=== PATIENT | female | born 1975 | race Caucasian/White ===

== ENCOUNTER 2018-06-21 05:33 | Observation (INO) | payer BC ==
[2018-06-20 10:31] LABS: BASOPHILS % 0.4 % (0.0-1.0); EOSINOPHILS # (AUTO) 0.1 (0.0-0.4); EOSINOPHILS % 2.1 % (0.0-6.0); HEMATOCRIT 37.6 % (34.2-44.1); HEMOGLOBIN 12.4 g/dL (12.0-16.0); LYMPHOCYTES # (AUTO) 2.1 (1.0-3.2); LYMPHOCYTES % 31.6 % (18.0-39.1); MONOCYTES # (AUTO) 0.9 (0.2-0.8); MONOCYTES % 13.4 % (4.4-11.3); NEUTROPHILS # (AUTO) 3.5 (2.1-6.9); NEUTROPHILS % 52.2 % (38.7-80.0); PLATELET COUNT 238 x10e3/uL (140-360); RED BLOOD COUNT 4.13 x10e6/uL (3.6-5.1); RED CELL DISTRIBUTION WIDTH 12.4 % (11.7-14.4)
[2018-06-20 10:54] LABS: ANION GAP 10.7 mmol/L (8-16); BLOOD UREA NITROGEN 15 mg/dL (7-26); BUN/CREATININE RATIO 22 (6-25); CARBON DIOXIDE 23 mmol/L (22-29); CHLORIDE 109 mmol/L (98-107); CREATININE, SERUM 0.69 mg/dL (0.57-1.11); EST GLOMERULAR FILTRATION RATE > 60 ML/MIN (60-); GLUCOSE 94 mg/dL (74-118); POTASSIUM 3.7 mmol/L (3.5-5.1); SODIUM 139 mmol/L (136-145)
[~2018-06-21] VITALS: Ht 152.4 cm; Wt 61.3 kg
[~2018-06-21 05:33] MED LIST: DILANTIN50 MG; FERROUS SULFAT325 MG PO; NORCO 10-325 T1 EACH PO; PHENYTOIN SODI100 MG PO; SIMVASTATIN20 MG PO; VITAMIN C500 M1 PO; VITAMIN E400 UNIT PO
--- OUTSIDE RECORDS SUMMARY | 2018-06-21 05:39 | XMS REPORT | Clinical Summary ---
Author Author [facility] Address Unknown Phone Unavailable Care Team Providers Care Policewoman Name Role Phone Caleb Gomez MD PCP Unavailable Allergies Comments Active Allergy Reactions Severity Noted Date Skin became so red, like sunburn, nausea Gadoterate Meglumine Other (See High 07/30/2017 Comments) Tomatoes- vomiting Other Food Other (See High 11/12/2017 Comments) Medications End Date Status Medication Sig Dispensed Refills Start Date Active HYDROcodone-acetaminophen Take 1 tablet 0 (NORCO) 10-325 mg per by mouth tablet every 6 (six) hours as needed for moderate pain. Active phenytoin sodium extended Take 100 mg 0 (DILANTIN ORAL) by mouth 3 (three) times a day. Active ascorbic acid, vitamin C, Take 500 mg 0 (ascorbic acid with nikolay by mouth hips) 500 MG tablet daily. Active vitamin E 200 UNIT Take 200 0 capsule Units by mouth daily. 12/02/2017 minocycline (MINOCIN) 100 Take 1 14 capsule 0 MG capsule capsule (100 8 mg total) by mouth 2 (two) times a day for 7 days. 01/02/2018 celecoxib (CeleBREX) 50 Take 1 60 capsule 0 MG capsule capsule (50 8 mg total) by mouth 2 (two) times a day for 30 days. 01/02/2018 gabapentin (NEURONTIN) Take 1 90 capsule 0 100 mg capsule capsule (100 8 mg total) by mouth 3 (three) times a day for 30 days. 12/14/2017 sulfamethoxazole-trimetho Take 1 tablet 14 tablet 0 prim (BACTRIM DS) 800-160 by mouth 2 8 mg per tablet (two) times a day for 7 days. 12/17/2017 mupirocin (BACTROBAN) 2 % Apply 30 g 0 ointment topically 2 8 (two) times a day for 10 days. 12/27/2017 clindamycin (CLEOCIN HCL) Take 1 40 capsule 0 150 MG capsule capsule (150 8 mg total) by mouth 4 (four) times a day for 10 days. Active Problems Problem Noted Date Neuralgia of left inguinal region 12/03/2017 Neuralgia of right inguinal region 12/03/2017 Encounters Care Team Description Date Type Specialty Lavinia Hua, AUSTEN 11/25/2017 Anesthesia General Surgery Event Tony Hui MD DENERVATION, BILATERAL GROIN W/ MUSCLE REPAIR 11/25/2017 Surgery Plastic Surgery Tony Hui MD Ilioinguinal neuralgia, right; Ilioinguinal neuralgia, left 11/25/2017 Hospital Plastic Surgery Encounter Tony Hui MD Ilioinguinal neuralgia, right (Primary Dx); Preop examination 11/12/2017 Pre-Admit Pre-Admission Testing Testing Appointment Tony Hui MD Inguinal neuralgia 08/05/2017 Hospital Radiology Encounter after 06/20/2017 Family History Medical History Relation Name Comments No Known Problems Father Fibromyalgia Mother Hypertension Mother Relation Name Status Comments Brother Alive myotonia congenita Father Alive Mother Alive myotonia congenita Social History Date Tobacco Use Types Packs/Day Years Used Never Smoker Smokeless Tobacco: Never Used Alcohol Use Drinks/Week oz/Week Comments Yes occasional Sex Assigned at Date Recorded Not on file Industry Job Start Date Occupation Not on file Not on file Not on file Travel End Travel History Travel Start No recent travel history available. Last Filed Vital Signs Time Taken Vital Sign Reading 11/25/2017 6:49 PM CDT Blood Pressure 106/64 11/25/2017 6:49 PM CDT Pulse 81 11/25/2017 6:49 PM CDT Temperature 37.1 C (98.7 F) 11/25/2017 6:49 PM CDT Respiratory Rate 14 11/25/2017 6:49 PM CDT Oxygen Saturation 98% - Inhaled Oxygen - Concentration 11/25/2017 12:43 PM CDT Weight 61.3 kg (135 lb 4 oz) 11/25/2017 12:43 PM CDT Height 154.9 cm (5' 1") 11/25/2017 12:43 PM CDT Body Mass Index 25.56 Plan of Treatment Health Maintenance Due Date Last Done Comments CERVICAL CANCER SCREENING 1997 INFLUENZA VACCINE 09/22/2018 Implants Device Identifier Shelf Expiration Date Model / Serial / Lot Implanted Type Area Manufactur er [id number] / / [facility] Micr Mricompatable Surgical N/A: N/A COOK [facility] Design Ti Bl - [id number] Implants; VASCULAR Implanted: Qty: 5 on 11/25/2017 by [employer]; [employer] Tony Hui MD Extenders; Surgical Wires Procedures Comments Procedure Name Priority Date/Time Associated Diagnosis SURGICAL PATHOLOGY Routine 11/26/2017 REQUEST 8:39 AM CDT NC AN ELECTIVE Routine 11/25/2017 ENDOTRACHEAL AIRWAY 4:02 PM CDT Procedure Note - Erik Mtz CRNA - 11/25/2017 4:02 PM CDT Airway Date/Time: 11/25/2017 3:34 PM Performed by: ERIK MTZ Authorized by: BIMAL KIRBY Location: OR Urgency: Elective Difficult Airway: No Anesthesio logist: BIMAL KIRBY Resident/C RNA/AA: ERIK MTZ Performed by: resident/C RNA/AA Preoxygena que with 100% O2: Yes C-spine Precaution s Maintained Throughout : Yes Mask Ventilatio n: Easy mask Final Airway Type: Endotrache al airway Final Endotrache al Airway: ETT and reinforced tube Cuffed: Yes Technique Used: Direct laryngosco py Devices/Me thods Used in Placement: Intubatin g stylet Insertion Site: Oral Blade Type: Melanie Laryngosco pe Blade/Vide olaryngosc ope Blade Size: 3 ETT Size (mm): 6.0 Cuff at minimum occlusion pressure: Yes Measured from: Lips ETT to Lips (cm): 22 Placement Verified by: CO2 detection, direct visualizat ion and equal breath sounds Laryngosco pic view: Grade IIa - partial view of glottis Rapid Sequence Induction (RSI): No Modified RSI: No Number of Attempts at Approach: 1 DLx1, Mac 3 blade, atraumatic ; 6.0 reinforced ETT visualized through the cuffs; bilateral breath sounds; EtCO2 present GRAFT, NERVE, TO LOWER 11/25/2017 Ilioinguinal neuralgia, EXTREMITY 1:20 PM CDT right Ilioinguinal neuralgia, left Case Notes TF, EST 2 HRS, BRACHIIAL PLEXUS SET, AXOGEN NERVE GRAFT X 4, 2MM NERVE CONNECTOR X 4 Special Needs TF, EST 2 HRS, BRACHIIAL PLEXUS SET, AXOGEN NERVE GRAFT X 4, 2MM NERVE CONNECTOR X 4 ESTIMATED GFR Routine 11/12/2017 11:47 AM CDT CBC HEMOGRAM Routine 11/12/2017 Preop examination 11:47 AM CDT COMPREHENSIVE METABOLIC Routine 11/12/2017 Preop examination PANEL 11:47 AM CDT MRI PELVIS WO CONTRAST Routine 08/05/2017 Inguinal neuralgia 7:28 PM CDT after 06/20/2017 Results * Surgical pathology request (11/26/2017 8:39 AM CDT) [facility] DEPARTMENT OF PATHOLOGY AND GENOMIC MEDICINE Surgical pathology report See link below for PDF Lab [facility] DEPARTMENT OF Report PATHOLOGY AND GENOMIC MEDICINE Result status This is Final Report for [facility] DEPARTMENT OF [id number] PATHOLOGY AND GENOMIC MEDICINE Performing Organization Address City/[facility] Phone Number [facility] DEPARTMENT OF [address] [place] [address] PATHOLOGY AND GENOMIC MEDICINE * Estimated GFR (11/12/2017 11:47 AM CDT) Estimated GFR >=90 mL/min/1.[address] [facility] DEPARTMENT OF Comment: PATHOLOGY AND CatergoryUnitsInte GENOMIC MEDICINE rpretation G1 >=90 Normal or high G2 60-89Mildly decreased [id number] Mildly to moderately decreased [id number] Moderately to severely decreased G4 15-29Severely decreased G5 <15Kidney failure The eGFR was calculated using the Chronic Kidney Disease Epidemiology Collaboration (CKD-EPI) equation. Interpretation is based on recommendations of the National Kidney Foundation-Kidney Disease Outcomes Quality Initiative (NKF-KDOQI) published in 2014. Specimen Plasma specimen Performing Organization Address City/[facility]/Zipcode Phone Number [facility] DEPARTMENT OF [address] [place] [address] PATHOLOGY AND GENOMIC MEDICINE * CBC hemogram (11/12/2017 11:47 AM CDT) WBC 12.58 (H) 4.50 - 11.00 k/uL [facility] DEPARTMENT OF PATHOLOGY AND GENOMIC MEDICINE RBC 4.60 4.20 - 5.50 m/uL [facility] DEPARTMENT OF PATHOLOGY AND GENOMIC MEDICINE HGB 13.6 12.0 - 16.0 g/dL [facility] DEPARTMENT OF PATHOLOGY AND GENOMIC MEDICINE HCT 41.4 37.0 - 47.0 % [facility] DEPARTMENT OF PATHOLOGY AND GENOMIC MEDICINE MCV 90.0 82.0 - 100.[address] [facility] DEPARTMENT OF PATHOLOGY AND GENOMIC MEDICINE MCH 29.6 27.0 - 34.[address] [facility] DEPARTMENT OF PATHOLOGY AND GENOMIC MEDICINE MCHC 32.9 31.0 - 37.0 g/dL [facility] DEPARTMENT OF PATHOLOGY AND GENOMIC MEDICINE RDW - SD 42.5 37.0 - 55.[address] [facility] DEPARTMENT OF PATHOLOGY AND GENOMIC MEDICINE MPV 9.0 8.8 - 13.[address] [facility] DEPARTMENT OF PATHOLOGY AND GENOMIC MEDICINE Platelet count 266 150 - 400 k/uL [facility] DEPARTMENT OF PATHOLOGY AND GENOMIC MEDICINE Nucleated RBC 0.00 /[address] [facility] DEPARTMENT OF PATHOLOGY AND GENOMIC MEDICINE Specimen Blood Performing Organization Address City/[facility] Phone Number [address] [address] PATHOLOGY AND GENOMIC MEDICINE * Comprehensive metabolic panel (11/12/2017 11:47 AM CDT) Sodium 138 135 - 148 mEq/L [facility] DEPARTMENT OF PATHOLOGY AND GENOMIC MEDICINE Potassium 4.6 3.5 - 5.0 mEq/L [facility] DEPARTMENT OF PATHOLOGY AND GENOMIC MEDICINE Chloride 98 98 - 112 mEq/L [facility] DEPARTMENT OF PATHOLOGY AND GENOMIC MEDICINE CO2 27 24 - 31 mEq/L [facility] DEPARTMENT OF PATHOLOGY AND GENOMIC MEDICINE Anion gap 13@ANIO 7 - 15 mEq/L [facility] DEPARTMENT OF PATHOLOGY AND GENOMIC MEDICINE BUN 11 6 - 20 mg/dL [facility] DEPARTMENT OF PATHOLOGY AND GENOMIC MEDICINE Creatinine 0.58 0.50 - 0.90 mg/dL [facility] DEPARTMENT OF PATHOLOGY AND GENOMIC MEDICINE Glucose 79 65 - 99 mg/dL [facility] DEPARTMENT OF PATHOLOGY AND GENOMIC MEDICINE Calcium 9.6 8.3 - 10.2 mg/dL [facility] DEPARTMENT OF PATHOLOGY AND GENOMIC MEDICINE Protein 8.1 6.3 - 8.3 g/dL [facility] DEPARTMENT OF Comment: PATHOLOGY AND [place] GENOMIC MEDICINE 4.6-7.0 g/dL 1 week 4.4-7.6 g/dL 7 months-1year 5.1-7.3 g/dL 1-2 years5.6-7 .5 g/dL >3 years6.0-8 .0 g/dL 18-150 6.3-8.3 g/dL Albumin 4.0 3.5 - 5.0 g/dL [facility] DEPARTMENT OF PATHOLOGY AND GENOMIC MEDICINE A/G ratio 1.0 0.7 - 3.[address] [facility] DEPARTMENT OF PATHOLOGY AND GENOMIC MEDICINE Alkaline phosphatase 75 35 - 104 U/L [facility] DEPARTMENT OF PATHOLOGY AND GENOMIC MEDICINE AST 26 10 - 35 U/L [facility] DEPARTMENT OF PATHOLOGY AND GENOMIC MEDICINE ALT 28 5 - 50 U/L [facility] DEPARTMENT OF PATHOLOGY AND GENOMIC MEDICINE Total bilirubin 0.4 0.0 - 1.2 mg/dL [facility] DEPARTMENT OF PATHOLOGY AND GENOMIC MEDICINE Specimen Plasma specimen Performing Organization Address City/State/Zipcode Phone Number [facility] DEPARTMENT OF [address] [place] [address] PATHOLOGY AND GENOMIC MEDICINE * MRI Pelvis Wo Contrast (08/05/2017 7:28 PM CDT) Narrative Performed At EXAMINATION:MRI PELVIS WO CONTRAST [facility] CLINICAL HISTORY:M79.2 Neuralgia and neuritisunspecified, inguinal groin painbilateral TECHNIQUE: Multiplanar multisequence MR images of the pelvis were obtained without contrast. The lack of intravenous contrast reduces the sensitivity of the examination. COMPARISON:None. Osseous structures: The bony pelvis appears intact no abnormal signal is identified involving the femur on either side. There are no changes to suggest AVN , stress injury or other bony lesion within the pelvis. Sacroiliac joints appear unremarkable. Hip joints appear relatively preserved. Musculature: The gluteal, adductor muscles and hamstrings at their atrial attachments appear intact to limits visualized by this technique. The iliopsoas muscles on both sides appears symmetric. The distal insertions appear grossly unremarkable. The visualized sacral nerves and course of the sciatic nerves appear unremarkable. No inguinal lymph nodes or masses are identified on either side. Miscellaneous findings: The left ovary is not visualized. The uterus is not visualized. There is a lobular cystic lesion in the right adnexa consistent with ovarian cyst measuring 4.6 x 3.9 x 3.9 cm this is bilobed and follow-up to ensure resolution is recommended. There is no free fluid in the cul-de-sac. No adenopathy or mass in the pelvis is identified. IMPRESSION: 1. Postop hysterectomy and possibly right O fracture of the right ovary is not visualized. 2. Multilocular cyst right adnexa follow-up to ensure resolution is suggested this measures up to approximately 4.6 cm in maximum dimension. [id number] Procedure Note Interface, Radiology Results Incoming - 08/06/2017 10:57 AM CDT EXAMINATION: MRI PELVIS WO CONTRAST CLINICAL HISTORY: M79.2 Neuralgia and neuritis unspecified, inguinal groin pain bilateral TECHNIQUE: Multiplanar multisequence MR images of the pelvis were obtained without contrast. The lack of intravenous contrast reduces the sensitivity of the examination. COMPARISON: None. Osseous structures: The bony pelvis appears intact no abnormal signal is identified involving the femur on either side. There are no changes to suggest AVN , stress injury or other bony lesion within the pelvis. Sacroiliac joints appear unremarkable. Hip joints appear relatively preserved. Musculature: The gluteal, adductor muscles and hamstrings at their atrial attachments appear intact to limits visualized by this technique. The iliopsoas muscles on both sides appears symmetric. The distal insertions appear grossly unremarkable. The visualized sacral nerves and course of the sciatic nerves appear unremarkable. No inguinal lymph nodes or masses are identified on either side. Miscellaneous findings: The left ovary is not visualized. The uterus is not visualized. There is a lobular cystic lesion in the right adnexa consistent with ovarian cyst measuring 4.6 x 3.9 x 3.9 cm this is bilobed and follow-up to ensure resolution is recommended. There is no free fluid in the cul-de-sac. No adenopathy or mass in the pelvis is identified. IMPRESSION: 1. Postop hysterectomy and possibly right O fracture of the right ovary is not visualized. 2. Multilocular cyst right adnexa follow-up to ensure resolution is suggested this measures up to approximately 4.6 cm in maximum dimension. [id number] Performing Organization Address City/State/Zipcode Phone Number [facility] [address] [place] [address] after 06/20/2017 Insurance Payer Benefit Subscriber ID Type Phone Address Plan / Group BCBS BCBS xxxxxxxxxxxx PPO CHOICE PPO/MICHELL MEZA PPO [phone] [id number] (Home) [place] [id number] Kayla Romero Reconstruc Self 1975 [phone] [address] (Home) [place] [address] Surgery Advance Directives Patient has advance care planning documents on file. For more information, rosita e contact: Mario Brasher [address] [place] [address]
--- OUTSIDE RECORDS SUMMARY | 2018-06-21 05:39 | XMS REPORT ---
Author Author [facility] Address Unknown Phone Unavailable Care Team Providers Care Clinical Law Professor Name Role Phone Unavailable Unavailable Payers Payer Name Policy Type Policy Number Effective Date Expiration Date Problems This patient has no known problems. Allergies, Adverse Reactions, Alerts Allergy Name Allergy Type Status Severity Reaction(s) Onset Date Inactive Date Treating Clinician Comments No Known Allergies DA Active U 2015-12-23 00:00:00 Medications This patient has no known medications.
[2018-06-21] MEDS ORDERED: BUPIVACAINE 0.25%/EPI 30ML SDV INJ ONE (07:05)
[2018-06-21] MEDS ORDERED: IBUPROFEN 250 ML IV ONE (08:08)
[2018-06-21] MEDS ORDERED: ACETAMINOPHEN 1000 MG/100 ML 100 ML IV ONE (08:08)
[2018-06-21] MEDS: LACTATED RINGER'S 1,000 ML IV SCH ×2 (09:36→18:07)
[2018-06-21] MEDS ORDERED: DIPHENHYDRAMINE HCL 25 MG CAP PO PRN (09:45)
[2018-06-21] MEDS ORDERED: HYDROMORPHONE 1MG/1ML INJ IV PRN (09:45)
[2018-06-21] MEDS ORDERED: HYDROCODONE/APAP 10MG-325MG TAB PO PRN (09:45)
[2018-06-21] MEDS ORDERED: ONDANSETRON HCL INJ 2MG/ML 2ML 2 MG/ML VIAL IV PRN (09:45)
[2018-06-21] MEDS ORDERED: DOCUSATE SODIUM 100 MG CAP PO PRN (09:45)
[2018-06-21] MEDS ORDERED: SIMETHICONE 80 MG CHEW PO PRN (09:45)
[2018-06-21] MEDS ORDERED: PROMETHAZINE HCL (IM) 25 MG/ML VIAL IV PRN (09:45)
[2018-06-21] MEDS ORDERED: BISACODYL 10 MG SUPP PR PRN (09:45)
[2018-06-21] MEDS ORDERED: HYDROMORPHONE 2MG/ML 2 MG/ML ML ONE (09:50)
--- OUTSIDE RECORDS SUMMARY | 2018-06-21 09:55 | XMS REPORT | Clinical Summary ---
Author Author [facility] [facility] [employer] Address Unknown Phone Unavailable Care Team Providers Care Motor Vehicle Dispatcher Name Role Phone Caleb Gomez MD PCP [...] / Lot Implanted Type Area Manufactur er [id number] / / Clip [facility] Sprfn Micr Mricompatable Surgical N/A: N/A COOK [facility] Design Ti Bl - [id number] Implants; VASCULAR Implanted: Qty: 5 on 11/25/2017 by [employer]; [employer] Tony Hui MD Extenders; Surgical Wires Procedures Comments Procedure Name Priority Date/Time Associated Diagnosis SURGICAL PATHOLOGY Routine 11/26/2017 REQUEST 8:39 AM CDT [place] AN ELECTIVE Routine 11/25/2017 ENDOTRACHEAL AIRWAY 4:02 [...] Surgical pathology request (11/26/2017 8:39 AM CDT) [facility] DEPARTMENT OF PATHOLOGY AND GENOMIC MEDICINE Surgical pathology report See link below for PDF Lab [facility] DEPARTMENT OF Report PATHOLOGY AND GENOMIC MEDICINE Result status This is Final Report for [facility] DEPARTMENT OF [id number] PATHOLOGY AND GENOMIC MEDICINE Performing Organization Address City/[facility] Phone Number [facility] DEPARTMENT OF [address] [place] [address] PATHOLOGY AND GENOMIC MEDICINE * Estimated GFR (11/12/2017 11:47 AM CDT) Estimated GFR >=90 mL/min/1.73 m2 [facility] DEPARTMENT OF Comment: PATHOLOGY AND CatergoryUnitsInte GENOMIC MEDICINE rpretation G1 >=90 Normal or high G2 60-89Mildly decreased [id number] Mildly to moderately decreased [id number] Moderately to severely decreased G4 15-29Severely decreased G5 <15Kidney failure The eGFR was calculated using the Chronic Kidney Disease Epidemiology Collaboration (CKD-EPI) equation. Interpretation is based on recommendations of the National Kidney Foundation-Kidney Disease Outcomes Quality Initiative (NKF-KDOQI) published in 2014. Specimen Plasma specimen Performing Organization Address City/[facility]/Zipcode Phone Number [facility] DEPARTMENT OF [address] [place] [address] PATHOLOGY AND GENOMIC MEDICINE * CBC hemogram (11/12/2017 11:47 AM CDT) WBC 12.58 (H) 4.50 - 11.00 k/uL [facility] DEPARTMENT OF PATHOLOGY AND GENOMIC MEDICINE RBC 4.60 4.20 - 5.50 m/uL [facility] DEPARTMENT OF PATHOLOGY AND GENOMIC MEDICINE HGB 13.6 12.0 - 16.0 g/dL [facility] DEPARTMENT OF PATHOLOGY AND GENOMIC MEDICINE HCT 41.4 37.0 - 47.0 % [facility] DEPARTMENT OF PATHOLOGY AND GENOMIC MEDICINE MCV 90.0 82.0 - 100.0 fL [facility] DEPARTMENT OF PATHOLOGY AND GENOMIC MEDICINE MCH 29.6 27.0 - 34.0 pg [facility] DEPARTMENT OF PATHOLOGY AND GENOMIC MEDICINE MCHC 32.9 31.0 - 37.0 g/dL [facility] DEPARTMENT OF PATHOLOGY AND GENOMIC MEDICINE RDW - SD 42.5 37.0 - 55.0 fL [facility] DEPARTMENT OF PATHOLOGY AND GENOMIC MEDICINE MPV 9.0 8.8 - 13.2 fL [facility] DEPARTMENT OF PATHOLOGY AND GENOMIC MEDICINE Platelet count 266 150 - 400 k/uL [facility] DEPARTMENT OF PATHOLOGY AND GENOMIC MEDICINE Nucleated RBC 0.00 /100 WBC [facility] DEPARTMENT OF PATHOLOGY AND GENOMIC MEDICINE Specimen Blood Performing Organization Address City/[facility] Phone Number [address] [address] PATHOLOGY AND GENOMIC MEDICINE * Comprehensive metabolic panel (11/12/2017 11:47 AM CDT) Sodium 138 135 - 148 mEq/L [facility] DEPARTMENT OF PATHOLOGY AND GENOMIC MEDICINE Potassium 4.6 3.5 - 5.0 mEq/L [facility] DEPARTMENT OF PATHOLOGY AND GENOMIC MEDICINE Chloride 98 98 - 112 mEq/L [facility] DEPARTMENT OF PATHOLOGY AND GENOMIC MEDICINE CO2 27 24 - 31 mEq/L [facility] DEPARTMENT OF PATHOLOGY AND GENOMIC MEDICINE Anion gap 13@ANIO 7 - 15 mEq/L [facility] DEPARTMENT OF PATHOLOGY AND GENOMIC MEDICINE BUN 11 6 - 20 mg/dL [facility] DEPARTMENT OF PATHOLOGY AND GENOMIC MEDICINE Creatinine 0.58 0.50 - 0.90 mg/dL [facility] DEPARTMENT OF PATHOLOGY AND GENOMIC MEDICINE Glucose 79 65 - 99 mg/dL [facility] DEPARTMENT OF PATHOLOGY AND GENOMIC MEDICINE Calcium 9.6 8.3 - 10.2 mg/dL [facility] DEPARTMENT OF PATHOLOGY AND GENOMIC MEDICINE Protein 8.1 6.3 - 8.3 g/dL [facility] DEPARTMENT OF Comment: PATHOLOGY AND [place] GENOMIC MEDICINE 4.6-7.0 g/dL 1 week 4.4-7.6 g/dL 7 months-1year 5.1-7.3 g/dL 1-2 years5.6-7 .5 g/dL >3 years6.0-8 .0 g/dL 18-150 6.3-8.3 g/dL Albumin 4.0 3.5 - 5.0 g/dL [facility] DEPARTMENT OF PATHOLOGY AND GENOMIC MEDICINE A/G ratio 1.0 0.7 - 3.8 [facility] DEPARTMENT OF PATHOLOGY AND GENOMIC MEDICINE Alkaline phosphatase 75 35 - 104 U/L [facility] DEPARTMENT OF PATHOLOGY AND GENOMIC MEDICINE AST 26 10 - 35 U/L [facility] DEPARTMENT OF PATHOLOGY AND GENOMIC MEDICINE ALT 28 5 - 50 U/L [facility] DEPARTMENT OF PATHOLOGY AND GENOMIC MEDICINE Total bilirubin 0.4 0.0 - 1.2 mg/dL [facility] DEPARTMENT OF PATHOLOGY AND GENOMIC MEDICINE Specimen Plasma specimen Performing Organization Address City/State/Zipcode Phone Number [facility] DEPARTMENT OF [address] [place] [address] PATHOLOGY AND GENOMIC MEDICINE * MRI Pelvis [...] to approximately 4.6 cm in maximum dimension. [id number] Procedure Note Interface, Radiology Results Incoming - [...] to approximately 4.6 cm in maximum dimension. [id number] Performing Organization Address City/State/Zipcode Phone Number [facility] [address] [place] [address] after 06/20/2017 Insurance Payer Benefit Subscriber ID Type Phone Address Plan / Group BCBS BCBS xxxxxxxxxxxx PPO CHOICE PPO/MICHELL MEZA PPO Guarantor Name Account Relation to Date of Phone Billing Address Type Patient Nick,Kayla Black Personal/F Self 1975 [phone] [address] (Home) [place] [id number] Kayla Romero Reconstruc Self 1975 [phone] [address] (Home) [place] [address] Surgery Advance Directives Patient has advance care planning documents on file. For more information, rosita e contact: Mario Brasher [address] [place] [address]
[2018-06-21] MEDS ORDERED: FENTANYL CITRATE/PF 100MCG/2 ML INJ ONE (12:28)
[2018-06-21 12:58] VITALS: BP 113/66
[2018-06-21] MEDS ORDERED: HYDROMORPHONE 2MG/ML 2 MG/ML ML IV PRN (13:00)
--- NOTE | 2018-06-21 13:00 | NUR ---
PT ARRIVED TO UNIT RESP EVEN AND UNLABORED, NO C/O PAIN AT THIS TIME, PT ABLE TO MAKE NEEDS KNOWN, PT HAS FAMILY MEMBER AT BEDSIDE, PT HAS 4 SITES CLEAN AND INTACT, PT ORIENTED TO ROOM AND CALL LIGHT, BED LOWERED TO SAFE POSITION, BED RAILS UP X2, CALL LIGHT IN REACH
[2018-06-21 13:11] VITALS: BP 113/66
[2018-06-21] MEDS ORDERED: PROMETHAZINE 12.5MG/ NACL 0.9% 50 ML IV PRN (13:15)
[2018-06-21 16:17] VITALS: BP 92/51
[2018-06-21] MEDS: KETOROLAC TROMETHAMINE 30 MG/ML VIAL IV SCH ×2 (16:30→18:00)
--- NOTE | 2018-06-21 17:00 | Operative Report ---
DATE OF PROCEDURE: 06/21/2018 SURGEON: Zuleyma Perez MD INTERACTIVE [employer] MARKETING SPECIALIST: WILTON Ferrell. PREOPERATIVE DIAGNOSES: 1. Pelvic pain. 2. Right ovarian cyst. POSTOPERATIVE DIAGNOSES: 1. Pelvic pain. 2. Right ovarian cyst. 3. Endometriosis. 4. Pelvic adhesions. PROCEDURES PERFORMED: 1. Diagnostic laparoscopy. 2. Lysis of adhesions. 3. Bilateral oophorectomy. 4. Ablation of endometriosis implants. ANESTHESIA: General. ESTIMATED BLOOD LOSS: Minimal. COMPLICATIONS: None. FINDINGS: The patient had a surgically absent uterus and fallopian tubes, and extensive adhesions between the left pelvic side-wall, left ovary, and sigmoid colon. She had small right ovarian cyst noted and multiple implants of endometriosis in the pelvic cul-de-sac. 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 Prior to the procedure, the risks, benefits, indications, and alternatives were discussed and the patient signed informed consent. DESCRIPTION OF PROCEDURE: Following anesthesia, the patient was placed in modified dorsal lithotomy position in [facility]. Prepping and draping was performed in typical sterile fashion and a time-out was done. A sponge stick was placed within the vagina and then attention was turned to the abdomen. The infraumbilical port site was identified and injected with a solution of 0.25% Marcaine with epinephrine and a small vertical infraumbilical incision was made with a scalpel. A Veress needle was placed and intra-abdominal placement was confirmed with small drop of sterile saline. The abdomen was then insufflated and a 5 mm trocar was placed at the umbilical site under direct visualization with the 5 mm laparoscope. At this time, adhesions were noted at the site and decision was made to leave the trocar in situ and attempt entry in the left upper quadrant. A solution of 0.25% Marcaine with epinephrine was used in the left upper quadrant and a 5 mm trocar was placed at this location under direct visualization with 5 mm laparoscope. Survey of the abdomen and pelvis was done with the findings noted above. Two additional ports were then placed in the patient's left and right lower quadrants. Both sites were injected with the solution of Marcaine and both 5 mm ports placed approximately 4 cm anterior and superior to the ASIS. Both were inserted atraumatically under direct visualization of laparoscope. The sigmoid colon was then grasped with a blunt grasper and retracted from the pelvic side-wall. A LigaSure device was then used to sequentially coagulate and cut all adhesions approximately 15-20 minutes of lysis of adhesions was performed in order to release the sigmoid colon from the pelvic side-wall and ovary. The left ovary was then grasped with the blunt retractor and placed on gentle tension, and the LigaSure device was used to sequentially coagulate and cut the infundibulopelvic ligament. The same technique was then repeated on the contralateral side. Good hemostasis was ensured along both sites. The infraumbilical 5 mm port was then removed and the skin incision extended, and an 11 mm port was placed in the site, and Endobag was then introduced via this port and both adnexa were placed within the bag and removed. The specimens were sent to the pathologist. The 11 mm port was then removed under direct visualization and a Gavin-Roel device was used to close the peritoneum and fascia in a mass closure technique with #0 Vicryl suture. The pelvis was then irrigated and cleared of all debris. Evicel was placed over the left pelvic side-wall sites where lysis of adhesion had been performed and a small amount of oozing was coming from the pelvic side-wall. Hemostasis was well assured. The remaining 5 mm ports were then removed after desufflation of the abdomen. All surgical sites were then closed with 4-0 or 4-0 Monocryl in a subcuticular fashion, covered Dermabond. All sponge, lap, and instrument counts were correct x2. The patient was awakened from anesthesia and brought to the recovery room in stable condition. MD MERI Stacy/MODWayne /[id number]
[2018-06-21] MEDS: HYDROCODONE/APAP 5MG-325MG TAB PO PRN ×2 (17:41→21:47)
[2018-06-21] MEDS ORDERED: FAMOTIDINE 20 MG/2 ML VIAL IV ONE (19:05)
[2018-06-21] MEDS ORDERED: LIDOCAINE HCL 2% LOCAL INJ 5 ML SDV VIAL INJ ONE (19:05)
[2018-06-21] MEDS ORDERED: PROPOFOL IV EMULSION 10 MG/ML 20 ML VIAL ONE (19:05)
[2018-06-21] MEDS ORDERED: LIDOCAINE HCL 2% JELLY 5 ML TUBE ONE (19:05)
[2018-06-21] MEDS ORDERED: DESFLURANE 240 ML BTL INH ONE (19:05)
[2018-06-21] MEDS ORDERED: ONDANSETRON HCL INJ 2MG/ML 2ML 2 MG/ML VIAL ONE (19:05)
[2018-06-21] MEDS ORDERED: METOCLOPRAMIDE HCL 10 MG/2ML VIAL ONE (19:05)
--- NOTE | 2018-06-21 19:10 | NUR ---
REPORT GIVEN TO ONCOMING NURSE FOR CONTINUED CARE
[2018-06-21] MEDS ORDERED: KETAMINE HCL INJ 50 MG/ML 10 ML VIAL ONE (19:55)
[2018-06-21] MEDS ORDERED: MIDAZOLAM HCL 2 MG/2 ML VIAL ONE (19:55)
[2018-06-21 20:00] VITALS: BP 114/70
[2018-06-21 20:16] VITALS: BP 114/70
[2018-06-21] MEDS ORDERED: ZOLPIDEM TARTRATE 5 MG TAB PO PRN (21:00)
[2018-06-21] MEDS ORDERED: SIMVASTATIN 20 MG TAB PO SCH (21:00)
[2018-06-21] MEDS ORDERED: PHENYTOIN SODIUM EXT REL 100 MG CAP PO SCH (21:00)
[2018-06-22 00:53] VITALS: BP 93/50
[2018-06-22] MEDS: KETOROLAC TROMETHAMINE 30 MG/ML VIAL IV SCH (01:40)
[2018-06-22] MEDS: LACTATED RINGER'S 1,000 ML IV SCH (02:34)
[2018-06-22] MEDS: HYDROCODONE/APAP 5MG-325MG TAB PO PRN (03:20)
[2018-06-22] MEDS ORDERED: IBUPROFEN600 MG PO (05:54)
[2018-06-22] MEDS ORDERED: NORCO 10-325 T1 EACH PO (05:54)
[2018-06-22 05:58] LABS: BASOPHILS % 0.3 % (0.0-1.0); EOSINOPHILS # (AUTO) 0.1 (0.0-0.4); EOSINOPHILS % 1.4 % (0.0-6.0); HEMOGLOBIN 10.4 g/dL (12.0-16.0); LYMPHOCYTES # (AUTO) 1.7 (1.0-3.2); LYMPHOCYTES % 21.6 % (18.0-39.1); MEAN CORPUSCULAR HEMOGLOBIN 29.9 pg (28-32); MEAN CORPUSCULAR HGB CONC 32.5 g/dL (31-35); MONOCYTES # (AUTO) 0.9 (0.2-0.8); NEUTROPHILS # (AUTO) 5.2 (2.1-6.9); NEUTROPHILS % 65.4 % (38.7-80.0); PLATELET COUNT 198 x10e3/uL (140-360); RED BLOOD COUNT 3.48 x10e6/uL (3.6-5.1); RED CELL DISTRIBUTION WIDTH 12.6 % (11.7-14.4)
[2018-06-22 06:15] LABS: ANION GAP 9.3 mmol/L (8-16); BLOOD UREA NITROGEN 7 mg/dL (7-26); BUN/CREATININE RATIO 10 (6-25); CALCIUM 8.8 mg/dL (8.4-10.2); CARBON DIOXIDE 27 mmol/L (22-29); CHLORIDE 104 mmol/L (98-107); EST GLOMERULAR FILTRATION RATE > 60 ML/MIN (60-); GLUCOSE 89 mg/dL (74-118); POTASSIUM 4.3 mmol/L (3.5-5.1); SODIUM 136 mmol/L (136-145)
[2018-06-22 06:18] VITALS: BP 111/63
--- NOTE | 2018-06-22 06:27 | NUR ---
Discharge instruction given to patient and reviewed, verbalized understanding. Calling for ride. Tele and IV removed. Will call when ride is here.
[2018-06-22] MEDS ORDERED: KETOROLAC TROMETHAMINE 30 MG/ML VIAL IV SCH (08:00)
== END 2018-06-22 07:35 | disposition home or self-care (01) ==
LOC: OR 05:33 → PACU V 09:39 → IMCU 12:42
PROVIDERS: ADMIT Obstetrics & Gynecology Obstetrics; ATTEND Obstetrics & Gynecology Obstetrics
DX: R10.2 Pelvic and perineal pain (principal); N83.291 Other ovarian cyst, right side; N80.3 Endometriosis of pelvic peritoneum; Z01.812 Encounter for preprocedural laboratory examination; Z88.8 Allergy status to other drugs, medicaments and biological substances; Z91.018 Allergy to other foods; K21.9 Gastro-esophageal reflux disease without esophagitis; N73.6 Female pelvic peritoneal adhesions (postinfective)
CPT/HCPCS: 36415 ×2; 58661; 80048 ×2; 85025 ×2; 88305; 93005; G0378 ×2; J0131; J1170; J1885 ×2; J2001 ×2; J2250; J2405; J2704; J2765; J7121; 88304